=== PATIENT | female | born 1945 | race Hispanic/Latino ===

== ENCOUNTER 2021-02-03 09:00 | Inpatient (IN) | payer OTHER, MEDICARE ==
[~2021-02-03] VITALS: Ht 154.9 cm; Wt 67.0 kg
[2021-02-03 09:21] LABS: BASOPHILS % (AUTO) 0.3 % (0.0-5.0); EOSINOPHILS % (AUTO) 0.3 % (0.0-8.0); HEMATOCRIT 35.9 % (36-48); MEAN CORPUSCULAR HEMOGLOBIN 30.7 pg (27.0-33.0); MEAN CORPUSCULAR VOLUME 95.7 fL (79-99); MONOCYTES % (AUTO) 7.3 % (3.0-13.0); NEUTROPHILS % (AUTO) 82.5 % (40.0-77.0); PLATELET COUNT (AUTO) 273 K/uL (130-400); RED BLOOD CELL COUNT(AUTO) 3.75 MIL/uL (4.00-5.50); RED CELL DISTRIBUTION WIDTH 13.6 % (11.0-15.5); WHITE BLOOD COUNT (AUTO) 10.6 K/uL (4.8-10.8)
[2021-02-03 09:40] LABS: CREATININE 1.9 mg/dL (0.5-1.5); POTASSIUM 4.1 mmol/L (3.5-5.1)
[2021-02-03 09:45] LABS: ALBUMIN 2.8 g/dL (3.5-5.0); BILIRUBIN,TOTAL 0.5 mg/dL (0.2-1.0); TOTAL PROTEIN, SERUM 7.7 g/dL (6.0-8.3)
[2021-02-03 09:51] LABS: APPEARANCE,URINE TURBID (CLEAR); BILIRUBIN,URINE MODERATE (NEGATIVE); COLOR,URINE YELLOW (YELLOW); GLUCOSE, URINE (UA) NEGATIVE (NEGATIVE); KETONES,URINE 5 mg/dL (NEGATIVE); LEUKOCYTE ESTERASE ,URINE NEGATIVE (NEGATIVE); NITRATE,URINE NEGATIVE (NEGATIVE); OCCULT BLOOD,URINE NEGATIVE (NEGATIVE); PH,URINE 5.5 (5.0-8.0); PROTEIN,URINE 30 mg/dL (NEGATIVE); UROBILINOGEN,URINE 0.2 mg/dL (0.2-1.0)
[2021-02-03] MEDS ORDERED: ONDANSETRON 4MG INJ IVP ONE (10:00)
[2021-02-03] MEDS ORDERED: 0.9%NACL 1000ML 1,000 ML IV ONE (10:00)
[2021-02-03 10:07] LABS: BACTERIA,URINE Few /HPF (None Seen); MUCUS,URINE Moderate LPF (None Seen); SQUAMOUS EPITHELIAL CELL,UR Few /HPF (0-2)
[2021-02-03 10:08] LABS: AMORPHOUS SEDIMENT,UR Few /LPF (None Seen); URIC ACID CRYSTALS,URINE Few /LPF (None Seen)
[2021-02-03] MEDS ORDERED: ACETAMINOPHEN 650 MG SUPPOSITORY RC PRN (11:00)
[2021-02-03] MEDS ORDERED: DOCUSATE SODIUM 100 MG CAP PO PRN (11:00)
[2021-02-03] MEDS: PANTOPRAZOLE 40 MG/VIAL IV SCH ×2 (11:02→15:42)
[2021-02-03] MEDS: LACTATED RINGERS 1000ML 1,000 ML IV SCH ×3 (11:02→17:48)
[2021-02-03] MEDS: ONDANSETRON 4MG INJ IVP PRN (14:56)
[2021-02-03 16:00] VITALS: BP 130/77
[2021-02-03] MEDS: METOCLOPRAMIDE 10 MG/2 ML VIAL IVP SCH (17:43)
[2021-02-03 20:00] VITALS: BP 138/77
[2021-02-04] VITALS: BP 141/78
[2021-02-04] MEDS: LACTATED RINGERS 1000ML 1,000 ML IV SCH ×2 (01:19→10:41)
[2021-02-04] MEDS: ONDANSETRON 4MG INJ IVP PRN ×3 (01:19→20:14)
[2021-02-04 04:00] VITALS: BP 150/74
[2021-02-04 06:02] LABS: HEMATOCRIT 33.3 % (36-48); MEAN CORPUSCULAR HEMOGLOBIN 31.4 pg (27.0-33.0); MEAN CORPUSCULAR HGB CONC 32.1 g/dL (32.0-36.0); MEAN CORPUSCULAR VOLUME 97.7 fL (79-99); RED BLOOD CELL COUNT(AUTO) 3.41 MIL/uL (4.00-5.50); RED CELL DISTRIBUTION WIDTH 13.9 % (11.0-15.5); WHITE BLOOD COUNT (AUTO) 10.5 K/uL (4.8-10.8)
[2021-02-04 06:33] LABS: ALBUMIN 2.4 g/dL (3.5-5.0); BILIRUBIN,TOTAL 0.6 mg/dL (0.2-1.0); CREATININE 1.5 mg/dL (0.5-1.5); MAGNESIUM 2.8 mg/dL (1.80-2.40); PHOSPHORUS 4.4 mg/dL (2.5-4.9); POTASSIUM 4.1 mmol/L (3.5-5.1); TOTAL PROTEIN, SERUM 6.7 g/dL (6.0-8.3)
[2021-02-04] MEDS: METOCLOPRAMIDE 10 MG/2 ML VIAL IVP SCH ×3 (06:33→15:45)
[2021-02-04 08:00] VITALS: BP 157/82
[2021-02-04] MEDS ORDERED: ENOXAPARIN SODIUM 40 MG/0.4 ML SYRINGE SQ SCH (09:00)
[2021-02-04 12:00] VITALS: BP 145/78
[2021-02-04] MEDS ORDERED: DEXAMETHASONE SOD PHOSPHATE 4 MG/ML 1ML VIAL IVP SCH (14:00)
[2021-02-04 14:53] LABS: ABG BASE EXCESS -9.1 mmol/L (-2.0-3.0); ABG HCO3 13.8 mmol/L (21.0-28.0); ABG OXYGEN SATURATION 94.3 % (95.0-99.0); ABG PCO2 23 mmHg (32-45)
[2021-02-04 16:00] VITALS: BP 147/78
[2021-02-04] MEDS: SODIUM BICARB 50MEQ 50ML VIAL IV SCH (17:19)
[2021-02-04] MEDS: ZOSYN 3.375GM +NS 50ML IV SCH (17:19)
[2021-02-04] MEDS: DEXTROSE 5%-LACTATED RINGERS 1,000 ML IV SCH (17:35)
[2021-02-04 20:00] VITALS: BP 139/75
[2021-02-04] MEDS: PANTOPRAZOLE 40 MG/VIAL IV SCH (20:13)
[2021-02-04] MEDS: SODIUM BICARBONATE 650 MG TAB PO SCH (20:13)
[2021-02-04] MEDS: ENOXAPARIN SODIUM 80 MG/0.8 ML SQ SCH (20:14)
[2021-02-05] VITALS: BP 147/77
[2021-02-05] MEDS: ZOSYN 3.375GM +NS 50ML IV SCH ×2 (02:25→11:01)
[2021-02-05 03:52] VITALS: BP 132/72
[2021-02-05] MEDS: ONDANSETRON 4MG INJ IVP PRN ×2 (04:20→21:05)
[2021-02-05] MEDS: METOCLOPRAMIDE 10 MG/2 ML VIAL IVP SCH ×2 (06:59→11:04)
[2021-02-05 07:55] LABS: HEMATOCRIT 35.6 % (36-48); MEAN CORPUSCULAR HEMOGLOBIN 30.7 pg (27.0-33.0); MEAN CORPUSCULAR HGB CONC 32.3 g/dL (32.0-36.0); MEAN CORPUSCULAR VOLUME 95.2 fL (79-99); RED BLOOD CELL COUNT(AUTO) 3.74 MIL/uL (4.00-5.50); RED CELL DISTRIBUTION WIDTH 13.9 % (11.0-15.5); WHITE BLOOD COUNT (AUTO) 12.9 K/uL (4.8-10.8)
[2021-02-05 08:00] VITALS: BP 159/72
[2021-02-05 08:13] LABS: ALBUMIN 2.5 g/dL (3.5-5.0); BILIRUBIN,TOTAL 0.6 mg/dL (0.2-1.0); CREATININE 1.7 mg/dL (0.5-1.5); POTASSIUM 4.1 mmol/L (3.5-5.1); TOTAL PROTEIN, SERUM 7.1 g/dL (6.0-8.3)
[2021-02-05] MEDS: ENOXAPARIN SODIUM 80 MG/0.8 ML SQ SCH (09:00)
[2021-02-05] MEDS: DEXTROSE 5%-LACTATED RINGERS 1,000 ML IV SCH (10:59)
[2021-02-05] MEDS: PANTOPRAZOLE 40 MG/VIAL IV SCH ×2 (11:01→21:04)
[2021-02-05] MEDS: DEXAMETHASONE SOD PHOSPHATE 4 MG/ML 1ML VIAL IVP SCH (11:02)
[2021-02-05] MEDS: SODIUM BICARBONATE 650 MG TAB PO SCH ×2 (11:03→21:04)
[2021-02-05] MEDS ORDERED: DIATR MEGLU/DIATRIZOATE SODIUM 30 ML BOTTLE ONE (11:13)
[2021-02-05 12:00] VITALS: BP 139/76
[2021-02-05 16:00] VITALS: BP 129/76
[2021-02-05 20:00] VITALS: BP 143/75
[2021-02-06] VITALS: BP 131/74
[2021-02-06] MEDS: DEXTROSE 5%-LACTATED RINGERS 1,000 ML IV SCH ×2 (00:56→16:33)
[2021-02-06] MEDS: ZOSYN 3.375GM +NS 50ML IV SCH ×3 (02:08→16:33)
[2021-02-06 04:00] VITALS: BP 127/70
[2021-02-06] MEDS: METOCLOPRAMIDE 10 MG/2 ML VIAL IVP SCH ×3 (06:34→16:33)
[2021-02-06 07:00] VITALS: BP 140/88
[2021-02-06] MEDS: DEXAMETHASONE SOD PHOSPHATE 4 MG/ML 1ML VIAL IVP SCH (09:16)
[2021-02-06] MEDS: SODIUM BICARBONATE 650 MG TAB PO SCH ×3 (09:17→22:05)
[2021-02-06] MEDS: PANTOPRAZOLE 40 MG/VIAL IV SCH ×2 (09:17→22:05)
[2021-02-06] MEDS: ENOXAPARIN SODIUM 80 MG/0.8 ML SQ SCH (09:18)
[2021-02-06 11:00] VITALS: BP 144/74
[2021-02-06 15:00] VITALS: BP 140/80
[2021-02-06] MEDS: SODIUM BICARB 50MEQ 50ML VIAL IV SCH (16:32)
[2021-02-06 20:00] VITALS: BP 134/76
[2021-02-06] MEDS ORDERED: FUROSEMIDE 20MG VIAL IV SCH (20:00)
[2021-02-07] VITALS: BP 120/79
[2021-02-07] MEDS: ONDANSETRON 4MG INJ IVP PRN ×2 (00:04→10:08)
[2021-02-07] MEDS: ACETAMINOPHEN 325 MG TAB PO PRN ×2 (00:05→10:11)
[2021-02-07] MEDS: ZOSYN 3.375GM +NS 50ML IV SCH ×3 (00:14→20:04)
[2021-02-07 04:00] VITALS: BP 126/74
[2021-02-07] MEDS: METOCLOPRAMIDE 10 MG/2 ML VIAL IVP SCH ×2 (06:12→20:04)
[2021-02-07 07:05] VITALS: BP 136/79
[2021-02-07] MEDS: PANTOPRAZOLE 40 MG/VIAL IV SCH ×2 (10:08→20:49)
[2021-02-07] MEDS: SODIUM BICARBONATE 650 MG TAB PO SCH ×3 (10:08→20:49)
[2021-02-07] MEDS: DEXAMETHASONE SOD PHOSPHATE 4 MG/ML 1ML VIAL IVP SCH (10:09)
[2021-02-07] MEDS: ENOXAPARIN SODIUM 80 MG/0.8 ML SQ SCH (10:10)
[2021-02-07] MEDS: DEXTROSE 5%-LACTATED RINGERS 1,000 ML IV SCH (10:28)
[2021-02-07 11:05] VITALS: BP 135/79
[2021-02-07] MEDS ORDERED: FUROSEMIDE 20MG VIAL ONE (13:45)
[2021-02-07] MEDS ORDERED: FUROSEMIDE 20MG VIAL IV ONE (14:00)
[2021-02-07] MEDS ORDERED: MORPHINE 2 MG SYG IVP PRN (14:00)
[2021-02-07] MEDS ORDERED: LORAZEPAM 2 MG/ML 1 ML VIAL IM PRN (14:00)
[2021-02-07 15:05] VITALS: BP 129/83
[2021-02-07] MEDS: SODIUM BICARB 50MEQ 50ML VIAL IV SCH (15:58)
[2021-02-07 19:30] VITALS: BP 142/84
[2021-02-08] VITALS: BP 111/66
[2021-02-08] MEDS: DEXTROSE 5%-LACTATED RINGERS 1,000 ML IV SCH (02:56)
[2021-02-08] MEDS: ZOSYN 3.375GM +NS 50ML IV SCH ×2 (03:01→09:17)
[2021-02-08 04:00] VITALS: BP 142/94
[2021-02-08] MEDS: METOCLOPRAMIDE 10 MG/2 ML VIAL IVP SCH ×2 (06:32→12:37)
[2021-02-08 08:00] VITALS: BP 144/83
[2021-02-08] MEDS: PANTOPRAZOLE 40 MG/VIAL IV SCH (09:17)
[2021-02-08] MEDS: DEXAMETHASONE SOD PHOSPHATE 4 MG/ML 1ML VIAL IVP SCH (09:17)
[2021-02-08] MEDS: SODIUM BICARBONATE 650 MG TAB PO SCH (09:18)
[2021-02-08] MEDS: ENOXAPARIN SODIUM 80 MG/0.8 ML SQ SCH (09:18)
[2021-02-08 11:43] VITALS: BP 138/82
== END 2021-02-08 14:00 | disposition hospice, home (50) | DRG 872 ==
LOC: EDH 09:00 → OBSVTOIN 10:38 → EDHIP 10:38 → 3CH 13:40
PROVIDERS: ADMIT Internal Medicine; ATTEND Internal Medicine
DX: A41.9 Sepsis, unspecified organism (principal); N39.0 Urinary tract infection, site not specified; N17.9 Acute kidney failure, unspecified; R18.8 Other ascites; D84.9 Immunodeficiency, unspecified; E86.0 Dehydration; E78.5 Hyperlipidemia, unspecified; K21.9 Gastro-esophageal reflux disease without esophagitis; N18.9 Chronic kidney disease, unspecified; D63.1 Anemia in chronic kidney disease; E11.22 Type 2 diabetes mellitus with diabetic chronic kidney disease; I12.9 Hypertensive chronic kidney disease with stage 1 through stage 4 chronic kidney disease, or unspecified chronic kidney disease; T21.01XA Burn of unspecified degree of chest wall, initial encounter; Y84.2 Radiological procedure and radiotherapy as the cause of abnormal reaction of the patient, or of later complication, without mention of misadventure at the time of the procedure; Y92.89 Other specified places as the place of occurrence of the external cause; Z85.3 Personal history of malignant neoplasm of breast; Z90.12 Acquired absence of left breast and nipple; Z92.21 Personal history of antineoplastic chemotherapy; Z92.3 Personal history of irradiation; Z90.710 Acquired absence of both cervix and uterus
CPT/HCPCS: 36415; 36600; 71045; 74176; 74250; 80053; 81001; 82435; 82550; 82803; 82947; 82948; 83605; 83690; 83735; 84100; 84132; 84295; 84484; 85018; 85025; 85027; 85378; 87040; 87088; 93970; 97039; C9113; G0378; J1100; J1650; J1940; J2060; J2405; J2543; J2765; J3490; J7030; J7120; Q9963